=== PATIENT | male | born 1955 | race Caucasian/White ===

== ENCOUNTER 2020-05-28 06:05 | Observation (INO) | payer OTHER, MEDICARE, SELFPAY ==
[2020-05-26 07:41] VITALS: BMI 29.4
[2020-05-28] VITALS (20 sets, daily range): BP systolic 82–130; BP diastolic 52–82; PULSE 72–108; RESP 10–18; TEMP 35.9–37; O2SAT 96–100; BMI 27.2
--- NOTE | 2020-05-28 07:09 | PM.PREOP ---
Pre-operative Note COVID-19 COVID-19 status: Negative Result date/Date tested (Pos, Neg/Pending): 05/25/20 Interval Note History & Physical reviewed/Exam performed by Physician: Yes Changes to H&P: No
[2020-05-28] MEDS: LACTATED RINGERS 1,000 ML 42 ML IV ×2 (07:18→10:59)
--- NOTE | 2020-05-28 07:23 | PM.OP.1 ---
Operative Date/Time/Diagnoses Date of procedure: 05/28/20 Time of procedure: 08:00 Pre-op diagnosis: right charcot ankle and hindfoot, diabetes type 2 Post-op diagnosis: same Procedure & Clinicians Procedure: Arthrodesis of ankle right CPT code 33876 Arthrodesis subtalar joint right CPT code 87845 Excision distal fibula right CPT code 04023 Beatriz ectomy right CPT code 73484 Tendo-Achilles lengthening CPT code 93348 modifier 59 Modifier 22 for complexity. This case was a Charcot neuropathic ankle with extremely distorted anatomy, requiring extensive dissection excision mobilization and talectomy. It required approximately twice as long the standard ankle fusion. Same procedure as scheduled: Yes Indications: Al is a 64-year-old diabetic male with a history of a right Charcot ankle. He has unstable deformity that requires stabilization and realignment to reduce the risk of wound breakdown need for amputation. The patient understands that this is a limb salvage procedure and is a large surgery requiring minimal 3 months nonweightbearing. He has been indicated for hindfoot arthrodesis with a intramedullary terry. We discussed the risks benefits and alternatives to the procedure. We discussed risk for nonunion and wound healing problems including infection and potential need for additional surgeries. We discussed the rationale for and risks and prolonged recovery associated with the surgery. The patient expressed a good understanding of all issues involving the risks of infection, nerve damage, wound dehiscence, nonunion, malunion, symptomatic hardware, over or under correction of deformity, incomplete relief of pain, inability to return to patient's desired level function, generalized dissatisfaction with the surgical procedure and outcome, DVT, pulmonary embolism, cardiac complications and . Consent was signed in the office. We also discussed risk for possible need for transfusion postoperatively in the patient was pinned minimum 1 night in the hospital after surgery and would have a drain for at least 1 day. Additionally the patient understands the healing bones and soft tissues will likely take approximately 3 months for full recovery will acquire 6-9 months. Patient understands that it is critical to elevate the operative leg for the 1st 3 weeks after surgery to control both swelling and pain. Patient was counseled and no weight-bearing will be allowed on the surgical leg for approximately 8-12 weeks or until the patient is instructed that it is safe to weight bear. Preoperative cover testing was done was negative. Surgeon: Lor Younger Chief Minister: Samm Atkinson Anesthesia Type: General, Peripheral nerve block and Local (Peripheral nerve block was placed by the anesthesia team for postoperative pain control) Operative Notes Findings: Charcot right ankle with hindfoot parallelism of the calcaneus and talus. Extensive heterotopic bone around the distorted distal fibula laterally. Prominent medial malleolus medially. Previous superficial ulceration has healed. Closure Type: primary Specimen(s): none sent Applied: implant(s) (Exam are [employer] Grannis ankle intramedullary nail 240mm x 10mm. Interlocking screws were 5.0mm ) Estimated Blood Loss (mL): 200 Blood products transfused: none Tourniquet time (min): 130 Procedure in detail: Patient was seen in the preoperative holding area and the appropriate limb and side of surgery was marked. The consent form was confirmed the patient final questions answered. Patient was then brought back to the operating room and placed on the operating table. A postoperative regional block was performed by the anesthesia team. The patient was then given an anesthetic and the airway was secured. Prophylactic IV antibiotics were administered. And redosed when appropriate. The patient was appropriately positioned and padded. All bony prominences were well-padded. An ipsilateral thigh bump was placed. A well-padded thigh tourniquet was placed on the operative extremity. An SCD was placed on the contralateral extremity. Formal time-out procedure was performed confirming the patient's side and site of surgery presence of informed consent and administration of appropriate preoperative antibiotics. All were in agreement and the appropriate implants were present. This was the right ankle. An Esmarch bandage was utilized to exsanguinate the limb and the tourniquet was released on the thigh to 250 mm of mercury. This was taken down after 2 hours and 10 minutes and not reinflated. Tendo Achilles lengthening. There was severe shortening of the extremity due to the parallelism of the Charcot dislocation. Therefore with restoring as some height there is expected Achilles contracture. This was again demonstrated once the tail ectomy was completed and the talus bone graft was placed back into the position and pinned the ankle dorsiflexion was difficult to get all the way to 90 therefore a tendo Achilles lengthening was completed. A triple Manolo style lengthening was performed. In the most distal and proximal incisions we cut to 50% of the tendon from midline to lateral and in the middle 50% from midline to medial. The stretch the Achilles until we had a good dorsiflexion were able to easily get our fusion positioning to a neutral 90?. Ankle and subtalar fusions and talectomy: Incision was made along the lateral border of the distal fibula carried over the lateral aspect of the ankle and subtalar joint. Dissection was carried through the skin subcutaneous tissue directly down to the fibula and lateral calcaneal. The talus was completely dislocated medially lying parallel to the calcaneus. There was extensive heterotopic bone lateral to the distal fibula. Subperiosteal dissection was performed over the distal 6 cm of the fibula. Fibula was circumferentially dissected and removed. this was then split and harvested for local autograft bone. we then continued our sub periosteal dissection anteriorly and posteriorly around the distal tibia to expose the tibiocalcaneal pseudo joint. There is severe arthritis and deformity. The talus was not reachable through the lateral wound. And additional medial incision and arthrotomy was made at the tibiotalar joint extending along the medial malleolus to the dislocated talus. The medial malleolus was extremely prominent and was excised. Followed by a flat cut distal tibia resection to remove what was left of the articular surface. This finally allowed exposure to the medial dislocated talus. This was mobilized but was not reducible in situ therefore This was dissected free with much effort. There is actually a quite a good chunk of usable quality bone available after complete talectomy, so this was prepared good bleeding cancellous bone and used as autograft. All joint surfaces were then debrided back to bleeding bone. Osteotomes/saw and the oval bur were used for this-expectedly on the calcaneal surface. Once there was good cancellous surfaces on both sides of the joints this was rinsed and then drilled with a 2 0 drill for multiple holes and an osteotome was used to fish scale the region. The talus autograft bone block was placed back into the joint restore a little bit of height. This was large enough to accommodate the nail. This was provisionally pinned in place. Next we then reduced the ankle and subtalar joints to neutral provisionally held this with several K-wires. And a separate K-wire was used to hold the bone block autograft talus. Fluoroscopy unit was brought in to localize the starting point for the hindfoot nail. An a line drawn from the lateral tibial canal and the bisection of the calcaneus axial view were inspected to establish the proximal starting. Once the starting point was determined on multiple views we placed a guidewire in our proposed location located centrally within the calcaneus talus and tibia. the plantar incision was then extended approximately 3 cm longitudinally to allow for the soft tissue protector. Then used our step starter drill into the calcaneus and talus in a crossed the distal aspect of the tibia. the guidewire was removed and exchanged for a ball-tipped guidewire. We then sequentially reamed starting at 8 to 11 for a 10 mm nail, of note this patient had a very small isthmus and there was chatter as early as 8 mm reaming of therefore the smallest a 10 mm nail was selected. [employer] Grannis ankle arthrodesis nail 10 x 240 mm TTC nail was placed. This nail had length sufficient to surpassed the isthmus and was selected to decrease the risk of periprosthetic stress fracture in this neuropathic patient. Rotation was set appropriately with the P to A wire. We maintained our alignment of the ankle and subtalar joints and progressive placed our screws in the terry. The talar screw was placed 1st, this was carefully targeted to achieve fixation in the talar bone block autograft and just all barely was able to target some of the bone more laterally. Next the 2 proximal shaft screws were placed in the perfect white earth technique from medial to lateral. This was then internally compressed about 3 mm. We then compressed the subtalar joint externally and then placed the lateral calcaneal screw and the posterior to anterior calcaneal screw. We were satisfied with our fixation and alignment. Final fluoroscopic images were obtained. These demonstrated stable fixation and neutral alignment. The guide was removed and the 0 end cap was placed. the wounds were irrigated medium Hemovac drain was placed laterally and then wounds were closed with 2 0 Vicryl and 3 O Vicryl and 3 0 and 2 0 nylon. A Sterile bulky dressing and posterior splint were applied. The patient was then transferred to the recovery room in good condition. I performed the entire procedure with the assistance of LEXIE Atkinson. The LEXIE helped with the skin closure. Presence of an sales assistants and salespersons in the operative room for was required for this surgery and was ventricle to the positioning set up exposure reduction and hardware placement and closure during this complex case. Complications: none Post-operative Condition: stable Disposition: Acute Care Plan for aftercare: Patient will be admitted postoperatively. This will be for pain control to receive additional doses of antibiotics and monitoring with his diabetes and drain monitoring. He will have a blood draw tomorrow to check his hemoglobin. Will have IV and oral pain medication. He will start taking aspirin for DVT prophylaxis on postoperative day 1. He will remain nonweightbearing on the operative extremity. Drain will be likely removed postop day 1 based on output.
[2020-05-28] MEDS: CEFAZOLIN 2 GM/100 ML FROZ.PIGGY IV ×3 (07:40→19:39)
--- NOTE | 2020-05-28 07:41 | SUR.PREOP ---
Block start time [0721] . Monitoring initiated and maintained throughout procedure. Oxygen and medications given per anesthesiologist instructions. Patient remained stable throughout procedure, no adverse reactions noted. Block end time [0733]. Pt daughter at bedside throughout procedure. Pt taken directly into the OR after completion of the block by YADIRA Valera.
--- NOTE | 2020-05-28 08:00 | DI.RAD.S_ITS ---
PROCEDURE: XR ANKLE RT MIN 3V INDICATIONS: ANKLE REBUILD TECHNIQUE: 5 views of the ankle were acquired. COMPARISON: [facility] [place], CR, XR ANKLE 3+ VIEWS RIGHT, 03/16/2020, 11:01. FINDINGS: Bones: Multiple intraoperative spot views of the ankle and lower leg are seen. Postsurgical changes are seen from resection of the distal fibula. An intramedullary nail is seen extending from the calcaneus to the mid tibial shaft with proximal and distal locking screws. Soft tissues: Soft tissue edema is seen surrounding the ankle. IMPRESSION: Postsurgical changes from hindfoot fusion and distal fibular resection. Dictated by: Tk Gusman M.D. on 05/28/2020 at 12:47 Approved by: Tk Gusman M.D. on 05/28/2020 at 12:50
--- NOTE | 2020-05-28 08:20 | SUR.OPER ---
Supine on padded OR bed, head on pillow, arms secured on padded arm boards at <90 degrees abduction, legs uncrossed, safety belt at thigh, tape over blanket over lower left leg, right leg draped free with gel bump under hip and plied blankets under calf.
--- NOTE | 2020-05-28 08:23 | P.PCN_ITS ---
Procedures Date/Time Date of procedure: 05/28/20 Time of procedure: 07:30 General Procedure description: Ultrasound guided popliteal sciatic nerve block and adductor canal saphenous nerve block for post op pain control after right ankle surgery by Dr. Younger. Risks and benefits of procedure discussed with patient. ASA monitoring applied to patient. Oxygen given via nasal cannula. 2 mg Versed and 50 mcg fentanyl given for procedural sedation. Skin site was prepped with chlorhexidine and allowed to fully dry. Sterile gloves, mask, hat and probe cover were used to maintain sterility. 2% lidocaine and 30ga needle was used to make a small skin wheal at needle insertion site. Under ultrasound guidance, a 21ga 100mm Pajunk needle was directed near the division of the sciatic nerve into tibial and peroneal nerve in the popliteal fossa (lateral approach). Patient reported no parasthesias. After negative aspiration, 20 mL 0.5% ropivica ine and 5mg dexamethasone were injected around sciatic nerve. In similar sterile fashion, the adductor canal was accessed with 100mm Pajunk under ultrasound guidance near the femoral artery at the level of mid thigh. After negative aspiration, 20mL Ropivacaine 0.5% with 5mg dexamethasone was injected into adductor canal. Patient tolerated procedure well. Upper photo: Sciatic nerve at popliteal fossa Lower photo: saphenous nerve/adductor canal at mid thigh
[2020-05-28] MEDS: BUPIVACAINE 0.25% W/ EPI 30 ML VIAL INJ (08:28)
--- NOTE | 2020-05-28 12:34 | SUR.PHASEI ---
Left leg: Popliteal + 2, color consistent with ethnicity, drsg CDI, cap refill > 2 seconds. patient arouses easy to voice.
--- NOTE | 2020-05-28 12:49 | SUR.PHASEI ---
Addendum to previous note made in error. Should be right foot: Drsg CDI, popliteal + 2, color consistent with ethnicity, denies pain.
--- NOTE | 2020-05-28 12:52 | DI.RAD.S_ITS ---
PROCEDURE: XR ANKLE RT 2V INDICATIONS: postop TECHNIQUE: 2 views of the ankle were acquired. COMPARISON: [facility], CR, XR ANKLE RT MIN 3V, 05/28/2020, 8:50. FINDINGS: Bones: No acute fractures or dislocations. Ankle mortise is normally aligned after placement of a medullary terry fixed at the distal half of the diaphysis of tibia, by 2 transverse screws, and fixed more inferiorly at the level of the ankle and talus by 2 transverse screws and a single axial calcaneal screw. Resection of the distal fibular diaphysis is noted.. No suspicious bony lesions. Soft tissues: No tibiotalar joint effusion. Achilles tendon appears normal. IMPRESSION: Fine bone detail obscured partially by overlying splint/cast material. Postoperative changes as noted. Dictated by: Fernando Wells M.D. on 05/28/2020 at 14:23 Approved by: Fernando Wells M.D. on 05/28/2020 at 14:25
--- NOTE | 2020-05-28 13:23 | SUR.PHASEI ---
BG 235. Doctor aware.
--- NOTE | 2020-05-28 13:57 | PC.NURSE ---
Day shift note: Patient admitted to room 223 from PACU, awake, alert, calm, and cooperative. Popliteal 2+ pulse, cap refill to RLE < 3 secs, numbness to toes. Received on RA, O2 sat 97%. SCDs placed upon arrival. Oriented to room, environment, and plan of care. Bryant light within reach.
[2020-05-28] MEDS: DEXTROSE 5%-0.9% NS 1,000 ML 84 ML IV (14:19)
[2020-05-28] MEDS: INSULIN ASPART 100 UNIT/ML INSULN PEN SUBCUT ×2 (16:36→21:09)
[2020-05-28 17:51] LABS: Add Manual Diff / Slide Review NO; Basophils Absolute Auto 0 /uL (0-100); Basophils Percent Auto 0.1 % (0-2); Eosinophils Absolute Auto 0 /uL (0-450); Eosinophils Percent Auto 0.1 % (2-4); Hematocrit 29.4 % (41-53); Hemoglobin 10.1 g/dL (13.5-17.5); Lymphocytes Absolute Auto 800 /uL (1100-4500); Mean Corpuscular HGB Conc 34.2 % (30-36); Mean Corpuscular Hemoglobin 32.1 PG (26-34); Mean Corpuscular Volume 93.8 fL (80-100); Monocytes Absolute Auto 100 /uL (0-900); Monocytes Percent Auto 0.9 % (3-14); Neutrophils Absolute Auto 13100 /uL (1500-7000); Neutrophils Percent Auto 92.9 % (50-75); Platelet Count 250 X10^3/uL (150-400); Red Blood Cell Count 3.13 X10^6/uL (4.5-5.9); Red Cell Distribution Width 13.8 % (11.6-14.8); White Blood Cell Count 14.1 X10^3/uL (4.5-11.0)
[2020-05-28] MEDS: SODIUM CHLORIDE 0.9% 1,000 ML 84 ML IV (17:58)
[2020-05-28] MEDS: METFORMIN HCL 500 MG TABLET 1000 MG PO (21:07)
[2020-05-28] MEDS: ATORVASTATIN 20 MG TABLET 40 MG PO (21:07)
[2020-05-28] MEDS: DOCUSATE 100 MG CAPSULE PO (21:08)
[2020-05-29] VITALS (14 sets, daily range): BP systolic 98–133; BP diastolic 64–81; PULSE 80–95; RESP 16–18; TEMP 36.1–36.9; O2SAT 98–100
--- NOTE | 2020-05-29 00:44 | PC.NURSE ---
Pt has no c/o of pain. Baseline neuropathy in bilateral legs - complete numbness in R leg to knee. Unable to move toes at this time.
[2020-05-29] MEDS: CEFAZOLIN 2 GM/100 ML FROZ.PIGGY IV (04:11)
[2020-05-29 06:38] LABS: Mean Corpuscular HGB Conc 34.7 % (30-36); Mean Corpuscular Hemoglobin 32.3 PG (26-34); Mean Corpuscular Volume 92.9 fL (80-100); Platelet Count 172 X10^3/uL (150-400); Red Blood Cell Count 2.16 X10^6/uL (4.5-5.9); Red Cell Distribution Width 13.3 % (11.6-14.8); White Blood Cell Count 11.2 X10^3/uL (4.5-11.0)
--- NOTE | 2020-05-29 06:43 | PC.NURSE ---
Critical lab value, H/H 7.0/20.1 Provider Abdirahman Robertson notified - no new orders. Also order obtained to straight cath for urinary retention, 360mL retained.
[2020-05-29 06:45] LABS: BUN Creatinine Ratio 24.5 (6-22); Blood Urea Nitrogen 25 mg/dL (9-20); Calcium 8.1 mg/dL (8.4-10.2); Carbon Dioxide 24 mmol/L (22-32); Chloride 103 mmol/L (98-107); Estimated Glomerular Filt Rate > 60.0 mL/min (>60); Glucose 181 mg/dL (80-110); HEMOLYSIS < 15 (0-50); Hematocrit 20.1 % (41-53); Potassium 4.4 mmol/L (3.4-5.1); Sodium 133 mmol/L (137-145)
[2020-05-29] MEDS: SODIUM CHLORIDE 0.9% 1,000 ML 84 ML IV (06:51)
--- NOTE | 2020-05-29 07:15 | P.PN_ITS ---
Subjective Subjective Interval history: POD 1 right charcot ankle reconstruction with hindfoot terry. and TTC fusion. pt was awake overnight. h/h 05/25 this AM, bp slight low but otherwise stable. blood glucose trending down- 180 this am prior to meds/correction. had some urinary retention - straight cath x1 Pt sitting up in bed eating breakfast, no acute distress. no complaints. has not been out of bed yet. no pain- block still working. HV in place Exam Vital Signs (past 8 hours): - 05/29/20 00:06 05/29/20 04:35 Temperature 98.0 F 97.5 F L Pulse Rate 95 H 88 Respiratory Rate 16 16 Blood Pressure 115/70 98/65 Pulse Oximetry 99 98 Oxygen Delivery Method Room Air Oxygen Flow Rate 0 Narrative Exam Narrative: AOx3 NAD HEENT NCAT VSS-- trends slight low on bp 90s to low 100s systolic and about ninety HR. sats excellent on RA using his incentive spirometry. MSK: RLE in splint c/d/i. HV in place, bloody drainage. toes still numb/ block still working. SCD on LLE calfs soft. Objective Labs Result Diagrams: 05/29/20 05:50 05/29/20 05:50 Labs: Laboratory Results - last 24 hr 05/28/20 05/29/20 05/29/20 17:43 05:50 05:50 WBC 14.1 H 11.2 H RBC 3.13 L 2.16 L Hgb 10.1 L 7.0 L Hct 29.4 L 20.1 L* MCV 93.8 92.9 MCH 32.1 32.3 MCHC 34.2 34.7 RDW 13.8 13.3 Plt Count 250 172 Neut % (Auto) 92.9 H Lymph % (Auto) 6.0 L [place] % (Auto) 0.9 L Eos % (Auto) 0.1 L Baso % (Auto) 0.1 Neut # (Auto) 35763 H Lymph # (Auto) 800 L [place] # (Auto) 100 Eos # (Auto) 0 Baso # (Auto) 0 Sodium 133 L Potassium 4.4 Chloride 103 Carbon Dioxide 24 BUN 25 H Creatinine 1.02 Estimated GFR > 60.0 BUN/Creatinine Ratio 24.5 H Glucose 181 H Calcium 8.1 L Assessment & Plan Post-op Assessment and plan (1) Acute blood loss anemia: (2) Diabetes: (3) Charcot ankle: Postoperative Procedures: Procedures Operation Date: 05/28/20 07:45 Actual Procedures Side Surgeon p Tibiotalar calcaneal arthrodesis. fibula osteotmy & excision. telegraphic or autograft bone graft as needed. Right Lor Younger MD s Achilles Tendon Lengthening as indicated Right Lor Younger MD pod 1 R TTC fusion with hindfoot terry. postop acute blood loss anemia. hgb 7 this am. blood loss not unexpected for this surgery. plan keep inpt and transfusion 2 units. keep drain today. Pt requires inpt status for continued monitoring, requirement for transfusion, will get flomax for urinary retention. PT/OT. NWB RLE (touch down for balance ok) Quality VTE Deep Vein Thrombosis/Pulmonary Embolism Present on Admission: No
[2020-05-29] MEDS: TAMSULOSIN 0.4 MG CAPSULE PO (08:17)
[2020-05-29] MEDS: MULTIVITAMIN 1 TABLET 1 TAB PO (08:17)
[2020-05-29] MEDS: DOCUSATE 100 MG CAPSULE PO ×2 (08:17→20:56)
[2020-05-29] MEDS: METFORMIN HCL 500 MG TABLET 1000 MG PO ×2 (08:17→20:56)
[2020-05-29] MEDS: PROPRANOLOL 10 MG TABLET PO (08:26)
[2020-05-29] MEDS: INSULIN ASPART 100 UNIT/ML INSULN PEN SUBCUT ×4 (08:28→20:56)
[2020-05-29] MEDS: CALCIUM CARBONATE 600 MG TABLET 1200 MG PO (09:28)
[2020-05-29] MEDS: CHOLECALCIFEROL (VITAMIN D3) 5,000 UNIT TABLET 5000 UNIT PO (09:28)
--- NOTE | 2020-05-29 13:04 | CM.IDA ---
Initial DCP Assessment Note Patient is a 65 yo male, resident of [facility], currently living with, being cared for by dtr Gali. Patient is POD 1 right charcot ankle reconstruction with hindfoot terry. and TTC fusion by Dr Younger. PCP: Hina Payer: ELIZABETH Anthony Met w/patient, introduced role. patient states his home address is in [place] but he has been cared for recently by his dtr Gali, in [place], who has been able to woodworking machine feeder. Patient commends his dtr and explains she has been able to assist w/managing his Diabetes. Patient expects to needs from this INSURANCE PROFESSIONAL upon DC, he plans to DC back w/his dtr to assist and is available 28/05 as needed. Will follow in case any DC needs or concerns arise. JORGE Mccarty
--- NOTE | 2020-05-29 13:35 | PT-IP ANOTE ---
pt with Hgb of 7 and Hct of 20.1 and is currently receiving transfusion. PT eval on hold and will check pt on afternoon. informed nurse and agreed.
--- NOTE | 2020-05-29 15:15 | PT.IIE ---
Current Diagnoses Acute posthemorrhagic anemia (05/28/20) Type 2 diabetes mellitus without complications (05/28/20) Charcot's joint, right ankle and foot (05/28/20) Charcot's joint, unspecified ankle and foot (05/28/20) Surgery Performed Operation Date: 05/28/20 07:45 Actual Procedures p Tibiotalar calcaneal arthrodesis. fibula osteotmy & excision. telegraphic or autograft bone graft as needed.(Right) - Lor Younger MD s Achilles Tendon Lengthening as indicated(Right) - Lor Younger MD Medical History (Last Updated 05/26/20 @ 07:48 by Hollie Covington RN) Ankle wound (Acute) Band keratopathy of left eye (Acute) Cataract (Acute) Dyslipidemia (Acute) Essential and other specified forms of tremor (Acute) Essential hypertension (Acute) Neuropathic arthropathy (Acute) Polyneuropathy (Acute) Retinal detachment (Acute) Type 2 diabetes mellitus (Acute) Physical Therapy Inpatient Evaluation/Re-Eval M1 PT/OT-IP Prior Functional Status Start: 05/29/20 17:30 Freq: NEEDED Status: Active Protocol: Document 05/29/20 15:15 AB (Rec: 05/29/20 18:01 AB [id number]) Medical Review Prior Functional Status Medical History Reviewed Yes Communication able to make needs known Mobility and Gait pt stated that he is modified independent with all mobilities: stated that he has been using bilateral crutches since ~ due to his R foot. stated that her daughter assists him with stair climbing but he is able to ambulate using his crutches by himself. Social History Household Members family Living Arrangements House Number of Floors (Floors) Two Floors Number of Stairs To Enter/Railing? Pt stated that he is staying at his daughter's house at this time and plans to stay with her for now. Home set up is regarding pt's daughter's house has 2 steps without rails to enter the house: pt stated that he goes up/down using B crutches and daughter behind him to assist if needed because he tends to lose his balance backwards; stated that sometimes he uses his crutch on one side and puts his arm on her daughter's shoulder for support on the other side has 16 steps with R rail ascending to get to bedroom level: pt stated that he usually gets down to the floor and do a sitting bump up the stairs. daughter assists him with getting down and up from the floor. Home Environment Standard Height Toilet,Tub/ Shower Doors Home Equipment Crutches,Shower Seat without Backrest,Hand Held Shower Employment Status Retired Additional Social History Comment stated that his daughter has a knee scooter and that he had tried using this before pt stated that her daughter works from home M2 PT-IP Current Condition Start: 05/29/20 17:30 Freq: NEEDED Status: Active Protocol: Document 05/29/20 15:15 AB (Rec: 05/29/20 18:01 AB [id number]) Physical Therapy Current Condition Current Condition Evaluation Date 05/29/20 Treatment Diagnosis R charcot ankle s/p arthrodesis; difficulty in walking Onset Date 05/28/20 Weight Bearing Status Weight Bearing Status Non-Weight Bearing Allowed Weight Bearing Amount (enter % Per doctor's order: RLE NWB ( or #) (%) touchdown ok for balance) M3 PT-IP Subjective Start: 05/29/20 17:30 Freq: NEEDED Status: Active Protocol: Document 05/29/20 15:15 AB (Rec: 05/29/20 18:01 AB [id number]) Subjective Physical Therapy Visit Type Type Initial Evaluation Visit Start Time 15:15 Visit Stop Time 16:15 Total Visit Minutes 60 Number of RETAIL CLIENT MANAGER Visits 0 Physical Therapy Visit Comments Patient Comments agreeable to do PT Therapy Pain Assessment Pain Present Pain Present Denied Pain M4 PT-IP Mobility and Gait Start: 05/29/20 17:30 Freq: NEEDED Status: Active Protocol: Document 05/29/20 15:15 AB (Rec: 05/29/20 18:01 AB [id number]) PT-Bed Mobility Assessment Supine to Sit Supine to Sit Standby Assistance Scooting Scooting to Edge of Bed Standby Assistance PT-Transfer Assessment Sit to and From Stand Sit to and from Stand Contact Guard Assistance,1 Person Assistance,Use of Upper Extremities Equipment Transfer Assistive Device Gait Belt,Axillary Crutches Orthotic/Prosthetic Devices or Brace: Yes Transfers Transfer Destination Chair Transfer Technique ambulated using crutches Transfer Ability Level of Assist Contact Guard Assistance,1 Person Assistance,Use of Upper Extremities Comments Mobility Comments BP in supine: 133/78. completed supine to sit SBA. pt was able to sit on EOB SBA. no c/o dizziness/ lightheadedness. completed sit to stand from EOB CGA. pt with intial unsteadiness and tends to lean LE against bed for support and stability. pt stated that he has essential tremors as well as L eye blindness. pt ambulated in room using crutches CGA. pt with increase trunk flexion and cued for upright posture. pt stated that his crutches are his 's and that he adjusted it to his comfort. stated that RLE is shorter than L and therefore has L crutch longer that R side so that he can keep RLE off the floor. informed pt that current crutch height is too high for pt. assessed ambulation with shorter height crutches and ambulated in room CGA and cues for upright posture. pt is steadier but stated that he feels more wobbly and prefers his previous crutch height. ambulated again using pt's crutches requiring CGA. pt agreed to sit up on chair. positioned on chair. call light and table within reach. c/o some lightheadedness after transfer: BP: 124/81 informed pt regarding caregiver training especially for stair climbing training. pt agreed and will call her daughter to come in tomorrow ~ 1030/11 am for training. Gait Assessment Gait Gait Assistance Required: Contact Guard Assist,1 Person Assist Distance (Feet) 40 Able to Maintain Weight Bearing Status Yes During Gait Assistive Devices Assistive Device Gait Belt,Axillary Crutches Orthotic/Prosthetic Devices or Brace: No Gait Deviations General Gait Pattern Flexed Trunk Factors Limiting Gait Function Factors Limiting Gait Function Decreased Activity Tolerance, Decreased Sensation,Limited Range of Motion,Poor Balance, Poor Safety Awareness PT-Balance Assessment Sitting Balance and Reactions Static Sitting Balance Ability Good Dynamic Sitting Balance Ability Good Standing Balance and Reactions Static Standing Balance Ability Fair Dynamic Standing Balance Ability Fair Device Used with crutches M5 PT-IP Objective Assessments Start: 05/29/20 17:30 Freq: NEEDED Status: Active Protocol: Document 05/29/20 15:15 AB (Rec: 05/29/20 18:01 AB [id number]) Orientation Orientation/Cognition Level of Alertness Alert Orientation Name,Age,Place,Situation Gross Range of Motion Lower Extremity ROM Assessment Right Impaired Impairments R lower leg on soft cast Strength Lower Extremity Strength Assessment Within Functional Limits Ankle R ankle NT due to NWB restriction Sensation Assessment Sensation Gross Sensation Right LE Impaired,Left LE Impaired Light Touch Impaired Proprioception (Position) Impaired Comments Sensation Comments decrease sensation on B feet R>L Muscle Tone Muscle Tone WNL Yes M6 PT-IP Treatment Start: 05/29/20 17:30 Freq: NEEDED Status: Active Protocol: Document 05/29/20 15:15 AB (Rec: 05/29/20 18:01 AB [id number]) Physical Therapy Treatment Education Education Provided Weight Bearing Status,Safety M7 PT-IP Assessment and Plan Start: 05/29/20 17:30 Freq: NEEDED Status: Active Protocol: Document 05/29/20 15:15 AB (Rec: 05/29/20 18:01 AB [id number]) PT Summary Assessment and Plan Potential Rehabilitation Potential Fair Status of Condition at Evaluation Evolving Summary Impairments Pain,ROM,Strength,Balance, Coordination,Sensation,Tone, Cognition,Bed Mobility, Transfers,Gait,Activity Tolerance Assessment Summary pt requiring CGA with mobility using axillary crutches. caregiver training set up for tomorrow 05/30/20 at ~ 1030/ 1100 am. pt is currently NWB on RLE and has stairs to get into the and house and to get to 2nd level bedroom. pt plans to go home with her daughter to assist him. Goals Bed Mobility Goal Independent Transfer Goal Independent,Crutches Gait Goal Independent,Crutches Gait Distance 100 Other Goals up/down 2 steps without rails using bilateral crutches min A up/down 16 steps R rail/ crutches min A / be able to do sitting bump up/down steps with mod A Days to Meet Goals 5 Frequency of Treatment Frequency Of Treatment Twice a Day Treatment Plan Physical Therapy Treatment Plan Bed Mobility Training,Transfer Training,Gait Training, Therapeutic Exercise,Balance Retraining,Post Op Education, Discharge Planning,Hot or Cold Pack,Neuromuscular Re-ed, Coordination Retraining,Manual Therapy Other Recommendations and Next Treatment caregiver training 05/29/20 at [facility] 1030/11 am; stair climbing training Recommendations To Nursing Amount of Assist Needed 1 Person Assist Discharge Recommendations PT Discharge Recommendations Home with Assistance,Home Health Transportation Needs at Discharge Private Vehicle
[2020-05-29 19:05] LABS: Hematocrit 26.7 % (41-53); Mean Corpuscular HGB Conc 33.7 % (30-36); Mean Corpuscular Hemoglobin 30.3 PG (26-34); Mean Corpuscular Volume 89.7 fL (80-100); Platelet Count 170 X10^3/uL (150-400); Red Blood Cell Count 2.98 X10^6/uL (4.5-5.9); Red Cell Distribution Width 15.9 % (11.6-14.8); White Blood Cell Count 12.6 X10^3/uL (4.5-11.0)
[2020-05-29] MEDS: ASPIRIN EC 81 MG TABLET PO (20:56)
[2020-05-29] MEDS: ATORVASTATIN 20 MG TABLET 40 MG PO (20:56)
[2020-05-29] MEDS: MELATONIN 3 MG TABLET PO (20:56)
[2020-05-30 05:03] VITALS: BP 108/69; PULSE 77; RESP 16; TEMP 36.7; O2SAT 99
[2020-05-30 05:12] LABS: Hematocrit 25.7 % (41-53); Hemoglobin 8.7 g/dL (13.5-17.5); Mean Corpuscular Hemoglobin 30.7 PG (26-34); Mean Corpuscular Volume 90.2 fL (80-100); Platelet Count 156 X10^3/uL (150-400); Red Blood Cell Count 2.85 X10^6/uL (4.5-5.9); Red Cell Distribution Width 15.9 % (11.6-14.8); White Blood Cell Count 10.3 X10^3/uL (4.5-11.0)
[2020-05-30 07:40] VITALS: BP 111/69; PULSE 81; RESP 16; TEMP 36.2; O2SAT 100
--- NOTE | 2020-05-30 07:49 | PC.NURSE ---
Pt up to br to void per urinal. 1000mls out. Charted by NOC GYM INSTRUCTOR as catheter but Pt was not catheterized.
[2020-05-30 08:07] VITALS: BP 111/67
[2020-05-30] MEDS: lisinopriL 10 MG TABLET PO (08:07)
[2020-05-30] MEDS: CALCIUM CARBONATE 600 MG TABLET 1200 MG PO (08:07)
[2020-05-30] MEDS: FERROUS SULFATE 325 MG TABLET PO (08:07)
[2020-05-30] MEDS: METFORMIN HCL 500 MG TABLET 1000 MG PO (08:07)
[2020-05-30] MEDS: DOCUSATE 100 MG CAPSULE PO (08:07)
[2020-05-30] MEDS: MULTIVITAMIN 1 TABLET 1 TAB PO (08:08)
[2020-05-30] MEDS: CHOLECALCIFEROL (VITAMIN D3) 5,000 UNIT TABLET 5000 UNIT PO (08:08)
[2020-05-30] MEDS: INSULIN ASPART 100 UNIT/ML INSULN PEN SUBCUT (08:08)
[2020-05-30] MEDS: PROPRANOLOL 10 MG TABLET PO (08:08)
[2020-05-30] MEDS: ASPIRIN EC 81 MG TABLET PO (08:08)
[2020-05-30] MEDS: SODIUM CHLORIDE 0.9% FLUSH 10 ML IV (08:11)
[2020-05-30] MEDS: TAMSULOSIN 0.4 MG CAPSULE PO (08:12)
[2020-05-30 08:24] VITALS: O2SAT 95
--- NOTE | 2020-05-30 08:53 | PM.DS.1 ---
History of Present Illness History of Present Illness Date Patient Seen: 05/30/20 Time Patient Seen: 08:53 Chief complaint: Excision,Fibula,Distal *OPB* Narrative: The patient is a 65-year-old diabetic male with a right Charcot ankle deformity. He has an unstable deformity, with at risk skin. He was indicated for right Charcot ankle reconstruction with hindfoot two-view talocalcaneal fusion using an intramedullary terry. Preoperatively he underwent correction of his elevated hemoglobin A1c back to 6.7 down from 10. He had vascular studies demonstrating adequate blood flow. And he has been nonweightbearing on the right lower extremity. Discharge Providers Provider Discharge Date: 05/30/20 Consults: 05/28/20 13:49 Consult to Discharge Planning Routine Comment: Consult to Physical Therapy Evaluate & Treat Comment: NWJoe RLE Physician Instructions: Evaluate and Treat Consult to Respiratory Therapy Evaluate & Treat Comment: Physician Instructions: Evaluate and treat Discharge provider: Lor Younger MD Summary Hospital Course Discharge Diagnosis: Right Charcot ankle Diabetes type 2 Hospital Course: Patient is a 65 year old male. He was admitted to the hospital postoperatively from his right tibial talocalcaneal fusion for Charcot deformity. Postoperatively his blood pressure was slightly soft. He did have postoperative acute blood loss anemia. He was indicated for inpatient status with a hemoglobin of 7 indicated for transfusion. He received transfusion of 2 units of packed cells on postoperative day 1. Hemoglobin increased to 9 which was appropriate. Blood pressure improved. He also had urinary retention requiring straight catheterization x2. Patient mentating normally. Moderate hyperglycemia treated with patient's baseline metformin and sliding scale insulin. Glucose levels improved at time of discharge. Patient worked with Physical therapy occupational therapy and did well clearing for home with assistance. He is nonweightbearing on the right lower extremity with touchdown okay for balance. Also had some urinary retention postoperatively and did require straight catheterization x2. He was started on Flomax and urinary retention resolved. Status at Discharge Cognitive/behavioral status at discharge: oriented Functional status at discharge: uses cane/walker Overall status at discharge: patient is progressing back to baseline Time Spent with Patient Time spent: Less than 30 minutes Exam Vital Signs (past 8 hours): - 05/30/20 05:03 05/30/20 07:40 05/30/20 08:07 Temperature 98.1 F 97.2 F L Pulse Rate 77 81 Respiratory Rate 16 16 Blood Pressure 108/69 111/69 111/67 Pulse Oximetry 99 100 05/30/20 08:24 Temperature Pulse Rate Respiratory Rate Blood Pressure Pulse Oximetry 95 Oxygen Delivery Method Room Air Oxygen Flow Rate 0 Narrative Exam Narrative: Alert oriented male in no acute distress HEENT exam normocephalic atraumatic. Baseline left eye blindness Respiratory exam unlabored on room air lungs clear to auscultation CV exam regular rate and rhythm Genitourinary: Voiding freely. Has not had a bowel movement but is passing gas. Musculoskeletal: Upper extremities. Full range of motion no tenderness. Left lower extremity: Normal alignment. Soft calf. Dorsiflexion plantar flexion intact. Skin intact Right lower extremity: Splint in place. Normal alignment. Endorses sensation at toes. Only slightly able to wiggle them. Hemovac drain in place. Scant drainage. Was emptied this morning with 30 cc in the last shift, and 10 previous. Trending down substantially over last 24 hours. Calf is soft. Thigh is soft. No erythema. Objective Labs Result Diagrams: 05/30/20 04:55 05/29/20 05:50 Labs: Laboratory Results - last 24 hr 05/29/20 05/29/20 05/30/20 07:30 19:01 04:55 WBC 12.6 H 10.3 RBC 2.98 L 2.85 L Hgb 9.0 L 8.7 L Hct 26.7 L 25.7 L MCV 89.7 D 90.2 MCH 30.3 30.7 MCHC 33.7 34.0 RDW 15.9 H 15.9 H Plt Count 170 156 Blood Type A Positive Antibody Screen Negative Crossmatch See Detail Discharge Assessment & Plan Assessment and Plan Assessment: 1. Right Charcot ankle 2. Acute blood loss anemia, postoperative requiring transfusion 3. Diabetes type 2 Plan of Treatment: 1. Charcot right ankle status post TTC fusion with hindfoot nail: Nonweightbearing right lower extremity. Touchdown okay for balance. Elevate above heart level for 1st 2-3 weeks postoperatively to control swelling. Drain was removed today. Keep dressing clean dry and intact until follow-up. Block is wearing off. Will have pain medication available: Oxycodone 5 mg. May take 1-2 tablets q.4 hours as needed for pain. Will also take calcium and vitamin-D to help with bone healing. 2. Acute blood loss anemia. Hemoglobin improved appropriately after transfusion 2 units. Vital signs are stable this morning. Will start iron supplementation. 3. Diabetes type 2. On metformin b.i.d.. Continue diabetic diet. 4. Will work once again with PT OT prior to discharge once his daughter had arrives. 5. Planned discharged today following physical therapy. 6. DVT prophylaxis aspirin 81 mg b.i.d. Discharge Plan Discharge Plan Patient Disposition: Home Discharge comment: After physical therapy and when transportation arranged. Discharge Med Rec/Prescriptions Prescriptions: New oxycodone 5 mg tablet 5 mg PO Q4H PRN (Reason: pain) Qty: 42 RF: 0 ondansetron HCl [Zofran] 4 mg tablet 4 mg PO Q8H PRN (Reason: nausea and vomiting) Qty: 7 RF: 1 docusate sodium [Colace] 100 mg capsule 100 mg PO BID Qty: 30 RF: 1 aspirin 81 mg Tablet,Delayed Release (Dr/Ec) 81 mg PO BID Qty: 60 RF: 0 calcium carbonate 600 mg calcium (1,500 mg) Tablet 1,200 mg PO DAILY Qty: 30 RF: 1 tamsulosin [Flomax] 0.4 mg Capsule 0.4 mg PO DAILY PRN (Reason: Urinary Retention) Qty: 14 RF: 1 ferrous sulfate 325 mg (65 mg iron) Tablet 325 mg PO BIDWM Qty: 60 RF: 0 cholecalciferol (vitamin D3) [Vitamin D3] 125 mcg (5,000 unit) Tablet 5,000 unit PO DAILY Qty: 30 RF: 1 Continued atorvastatin 40 mg Tablet 40 mg PO BEDTIME RF: 0 acetaminophen 500 mg Tablet 1,000 mg PO Q8H PRN (Reason: Pain) RF: 0 metformin 1,000 mg Tablet 1,000 mg PO BID RF: 0 multivitamin with iron Tablet 1 tab PO DAILY RF: 0 propranolol 10 mg Tablet 10 mg PO DAILY RF: 0 lisinopril 10 mg Tablet 10 mg PO DAILY RF: 0 cyanocobalamin (vitamin B-12) 1,000 mcg Capsule 1,000 mcg PO DAILY RF: 0 Discontinued aspirin [Aspir-81] 81 mg Tablet,Delayed Release (Dr/Ec) 81 mg PO DAILY RF: 0 calcium carbonate-vitamin D3 [Calcium 500 + D] 500 mg(1,250mg) -200 unit Tablet 1 tab PO DAILY RF: 0 Follow up/Referrals: Lor Younger MD [Physician] - Discharge Orders: Discharge (Order); Ordered 05/30/20 Ordered By: Lor Younger Provider Discharge Instructions Diet: Carb-consistent/Diabetic Activity: NWB RLE, elevate above heart level Other treatments: At-Home Instructions - Dr. Younger Surgery: Hindfoot fusion Cast/Splint/Dressing Care Instructions 1) Keep cast/dressing clean and dry. 2) May bathe - but cast/dressing must remain dry. 3) Should the cast become wet, you need to come into emergency department or call your physician's clinic immediately for cast removal and replacement. Moisture can cause skin breakdown and lead to infection if left untreated. 4) Do not stick any sharp object down the cast to itch, as this can cause scrapes/cuts/punctures which can lead to infection. 6) Observe for increasing pain in the extremity with the cast, finger/toe-tips turning blue/purple, or numbness and tingling in your toes/fingers. Should any of these symptoms arise, you need to be seen immediately for evaluation of swelling and increasing compartment pressures within your affected extremity. 7) Keep your affected extremity elevated - Toes Above your Nose? - This is ortiz in the first two weeks after surgery to minimize swelling. 8) You may ice your extremity, being careful to prevent melting ice from saturating into the splint/cast. Activity No heavy lifting greater than 10 pounds. No [address] while on narcotic pain medication. Do not get your dressing/cast/splint wet! You must remain non-weight bearing on your operative extremity. Use crutches or a walker for ambulation. No driving until you are otherwise instructed by your physician. This will be addressed at your first follow-up appointment. Discharge Pain Medications You will be given a prescription for pain medication. You should start taking this the same day after your surgery. Wean off as tolerated. Do not wait to take the pain medication until the pain is severe, as it will be difficult to catch up once this occurs. The pain medication usually reaches its full effect ~1 hour after ingesting. If you have been sent home on Colace, this medication should be taken until you are off all narcotic (i.e. Vicodin, Percocet, Oxycodone, etc) pain medications, to prevent constipation. You may also obtain this or another stool softener over the counter to prevent or alleviate constipation. There are also stronger options available as needed - over the counter this would be a laxative (Miralax or other). Percocet or Vicodin have Tylenol in their ingredient lists. You must be careful not to exceed 3,000mg (3 grams) of Tylenol, from all sources, within a single 24-hr period. This means that you may not take more than 10 pills within a 24-hr period. Do NOT take Regular or Extra Strength Tylenol when taking your Percocet or Vicodin medications. -Some common side effects of the narcotic pain medications (Percocet, Oxycodone, Vicodin, etc.) include nausea and itching. Benadryl is a great over the counter medication that helps calm your stomach, decreases your anxiety levels, and minimizes the itching. You can easily purchase this at your local pharmacy as an evak-tkt-wqzklaq medication. Please abide by the instructions as printed on the bottle. If your nausea persists, make sure to take small amounts of crackers or other chief cook foods. Follow-Up/Emergency Contacts Please call for an appointment in either [place] or [place], if one has not been scheduled. Follow up 1-2 weeks after surgery. [phone] Contact the office if you have any of the following: ? Painful swelling or numbness ? Unrelenting pain ? Fever (over 101?- it is normal to have a low grade fever for the first day or two following surgery) or chills ? Redness around the incisions ? Color changes ? Continuous bleeding or drainage from the incision (a small amount is expected) ? Excessive nausea or vomiting ? Difficulty breathing If you have an emergency that requires immediate attention, proceed to the nearest emergency room. Blood Clot Prophylaxis You will need to complete a total 6-week (42 days) course of Aspirin after surgery, to minimize the risk of blood clots following surgery. You may alternatively purchase or use [id number] generic equivalent Aspirin. If you already have ?baby? Aspirin (81mg) at home, you can take 2 ?baby? Aspirin. Take a baby aspirin (81 mg) twice daily. Pain Medications: It is the policy of [facility] that narcotic medications will only be refilled during office hours. Additionally, due to the alarming rate of narcotic pain medication abuse/dependence, it has become necessary for physician practices to closely manage patient use of prescription narcotic pain relievers, such as Vicodin (Kevin), Percocet, and Oxycodone products. Narcotic pain management in the postoperative period may not exceed 6 weeks. If narcotic pain management is required beyond 90 days, then a referral to a Chronic Pain Specialist will be made. If a request for a medication prescription has been made, the physician must review your chart prior to authorizing the request. Please be patient with office staff. If you call during patient hours, your call may not be returned until the end of the day. A visit will be required before a narcotic prescription can be issued. Dr. Lor Younger [address] [email or web address] Skin/Wound/Dressing Care Skin care: keep dressing c/d/i-- reinforce as needed Report to your healthcare provider any signs of infection, such as:: chills, fever, night sweats, increased pain, unusual drainage and unusual redness Dressing: keep dressing c/d/i-- reinforce as needed Visit Report/Discharge Packet Instructions: Anemia, DI for Blood Transfusion, DI for Arthrodesis of the Ankle, How to Prevent Falls Visit Report Forms: Stroke Signs & Symptoms Discharge Data Attending Provider: Lor Younger Quality VTE Deep Vein Thrombosis/Pulmonary Embolism Present on Admission: No
--- NOTE | 2020-05-30 10:27 | PC.NURSE ---
Pt is dressed and ready for discharge home with Daughter Gali. Pt denies pain. IV has been removed. Went over d/c instructions with Pt-discussed d/c meds, time of last dose, reviewed stroke education, s/s of infection, drinking plenty of fluids to preven iron/narcotic constipation. Pt denies further questions and will be ready to transfer home with daughter after they complete caregiver training.
--- NOTE | 2020-05-30 11:16 | PT.IPTN ---
Current Diagnoses Acute posthemorrhagic anemia (05/28/20) Type 2 diabetes mellitus without complications (05/28/20) Charcot's joint, right ankle and foot (05/28/20) Charcot's joint, unspecified ankle and foot (05/28/20) Surgery Performed Operation Date: 05/28/20 07:45 Actual Procedures p Tibiotalar calcaneal arthrodesis. fibula osteotmy & excision. telegraphic or autograft bone graft as needed.(Right) - Lor Younger MD s Achilles Tendon Lengthening as indicated(Right) - Lor Younger MD Physical Therapy Treatment Note M2 PT-IP Current Condition Start: 05/29/20 17:30 Freq: NEEDED Status: Discharge Protocol: Document 05/29/20 15:15 AB (Rec: 05/29/20 18:01 AB [id number]) Physical Therapy Current Condition Current Condition Evaluation Date 05/29/20 Treatment Diagnosis R charcot ankle s/p arthrodesis; difficulty in walking Onset Date 05/28/20 Weight Bearing Status Weight Bearing Status Non-Weight Bearing Allowed Weight Bearing Amount (enter % Per doctor's order: RLE NWB ( or #) (%) touchdown ok for balance) M3 PT-IP Subjective Start: 05/29/20 17:30 Freq: NEEDED Status: Discharge Protocol: Document 05/30/20 10:30 LJ (Rec: 05/30/20 11:16 RENATA [id number]) Subjective Physical Therapy Visit Type Type Treatment Note Visit Start Time 10:30 Visit Stop Time 10:53 Total Visit Minutes 23 Notes dtr in room for CG training Number of MACHINE H[employer]LE [employer]ER Visits 1 Physical Therapy Visit Comments Patient Comments agreeable to do PT Therapy Pain Assessment Pain Present Pain Present Denied Pain M4 PT-IP Mobility and Gait Start: 05/29/20 17:30 Freq: NEEDED Status: Discharge Protocol: Document 05/30/20 10:30 RENATA (Rec: 05/30/20 11:16 LJ [id number]) PT-Transfer Assessment Sit to and From Stand Sit to and from Stand Contact Guard Assistance,1 Person Assistance,Use of Upper Extremities Equipment Transfer Assistive Device Gait Belt,Axillary Crutches Orthotic/Prosthetic Devices or Brace: Yes Transfers Transfer Destination Wheelchair Transfer Technique ambulated using crutches Transfer Ability Level of Assist Contact Guard Assistance,1 Person Assistance,Use of Upper Extremities Comments Mobility Comments Pt ambulate to in hallway ~ 60' using crutches with dtr assisting using CGA holding onto gait belt. Pt somewhat unsteady upon arising from chair but dtr there to assist. Wheeled to stairs. Pt transferred with dtr CGA from to bottom of stairs. See stair section for details Gait Assessment Gait Gait Assistance Required: Contact Guard Assist,1 Person Assist Distance (Feet) 60 Able to Maintain Weight Bearing Status Yes During Gait Assistive Devices Assistive Device Gait Belt,Axillary Crutches Orthotic/Prosthetic Devices or Brace: No Gait Deviations General Gait Pattern Flexed Trunk Factors Limiting Gait Function Factors Limiting Gait Function Decreased Activity Tolerance, Decreased Sensation,Limited Range of Motion,Poor Balance Comments Gait Comments Pt able to ambulate using B crutches with close SBA to CGA for fall prevention. Stair Climbing Assessment Evaluation Level of Assist On Stairs Contact Guard Assistance,1 Person Assistance Devices Stair Climbing Assistive Devices Axillary Crutches,Left Railing ,Right Railing Technique/Endurance Stair Climbing Direction Ascend and Descend Stair Climbing Technique Step to Step,Sitting Bump Number of Steps Climbed 3 Stair Climbing Set # Repetitions (reps) 1 Comments Stair Climbing Comments pt using sitting bump ascending stairs. Used right railing to assist himself into standing position. Dtr SBA- CGA while pt stood and turned to face stairs before descending. Upon descent, dtr in front of pt so he could use 1 crutch and left side railing. Pt performed step-to descent with no LOB. M5 PT-IP Objective Assessments Start: 05/29/20 17:30 Freq: NEEDED Status: Discharge Protocol: Document 05/29/20 15:15 AB (Rec: 05/29/20 18:01 AB [id number]) Orientation Orientation/Cognition Level of Alertness Alert Orientation Name,Age,Place,Situation Gross Range of Motion Lower Extremity ROM Assessment Right Impaired Impairments R lower leg on soft cast Strength Lower Extremity Strength Assessment Within Functional Limits Ankle R ankle NT due to NWB restriction Sensation Assessment Sensation Gross Sensation Right LE Impaired,Left LE Impaired Light Touch Impaired Proprioception (Position) Impaired Comments Sensation Comments decrease sensation on B feet R>L Muscle Tone Muscle Tone WNL Yes M6 PT-IP Treatment Start: 05/29/20 17:30 Freq: NEEDED Status: Discharge Protocol: Document 05/30/20 10:30 RENATA (Rec: 05/30/20 11:16 LJ [id number]) Physical Therapy Treatment Education Education Provided Weight Bearing Status,Safety M7 PT-IP Assessment and Plan Start: 05/29/20 17:30 Freq: NEEDED Status: Discharge Protocol: Document 05/30/20 10:30 RENATA (Rec: 05/30/20 11:16 LJ [id number]) PT Summary Assessment and Plan Potential Rehabilitation Potential Fair Summary Impairments ROM,Strength,Balance, Coordination,Sensation,Tone, Transfers,Gait,Activity Tolerance Assessment Summary Pt worked with dtr for CG training. Dtr assisting pt with ambulation and stair climbing as they have done in the past prior to surgery. They work well together and pt is aware of his limitations. He is smoewhat unsteady during transfers and transitions from sti<>stand and initiating stair climbing but dtr is close to assist. Pt safe to D/ C home Goals Bed Mobility Goal Independent Transfer Goal Independent,Crutches Gait Goal Independent,Crutches Gait Distance 100 Other Goals up/down 2 steps without rails using bilateral crutches min A up/down 16 steps R rail/ crutches min A / be able to do sitting bump up/down steps with mod A Days to Meet Goals 5 Frequency of Treatment Frequency Of Treatment Twice a Day Treatment Plan Physical Therapy Treatment Plan Bed Mobility Training,Transfer Training,Gait Training, Therapeutic Exercise,Balance Retraining,Post Op Education, Discharge Planning,Hot or Cold Pack,Neuromuscular Re-ed, Coordination Retraining,Manual Therapy Recommendations To Nursing Amount of Assist Needed 1 Person Assist Discharge Recommendations PT Discharge Recommendations Home with Assistance,Home Health Transportation Needs at Discharge Private Vehicle
== END 2020-05-30 10:49 | disposition home or self-care (01) ==
LOC: OR 07:37 → AC 11:04 → OR 05-31 06:45 → AC 05-31 09:56
PROVIDERS: Physician Assistant Surgical; Admitting Provider Orthopaedic Surgery Foot and Ankle Surgery; Referring Provider Orthopaedic Surgery Foot and Ankle Surgery; Visit Provider Orthopaedic Surgery Foot and Ankle Surgery
PROC: (CPT 27870; principal; 2020-05-28 07:45)
PROC: (CPT 27685; 2020-05-28 07:45)
DX: E11.610 Type 2 diabetes mellitus with diabetic neuropathic arthropathy (principal); D62 Acute posthemorrhagic anemia; Z79.84 Long term (current) use of oral hypoglycemic drugs
CPT/HCPCS: 27870; 28725; 27685; 28130; 27641; 36415; 36430; 64450; 73600; 73610; 76000; 80048; 82962; 85025; 85027; 86850; 86900; 86901; 97116; 97161; 97530; G0378; P9016; J0690; J1100; J2250; J2405; J2704; J3010